=== PATIENT | female | born 2000 | race Caucasian/White ===

== ENCOUNTER → 2020-10-28 | Outpatient (CLI) | payer OTHER ==
[~2020-10-28] MED LIST: BIOT1TAB2 PO
[2020-10-28 09:16] LABS: BASOPHILS % (AUTO) 1 % (0-1); EOSINOPHILS % (AUTO) 1 % (1-7); LYMPHOCYTES % (AUTO) 25 % (22-44); MEAN CORPUSCULAR HGB CONC 33.7 g/dL (32.4-35.8); MONOCYTES % (AUTO) 5 % (2-9); NEUTROPHILS % (AUTO) 68 % (42-75); PLATELET COUNT 305 x10^3/uL (130-400); RED BLOOD COUNT 4.66 x10^6/uL (3.82-5.3); RED CELL DISTRIBUTION WIDTH 13.9 % (9.6-15.2)
[2020-10-28 09:20] LABS: MICROSCOPIC INDICATED
[2020-10-28 09:24] LABS: ALANINE AMINOTRANSFERASE 13 U/L (12-78); ANION GAP 6 mmol/L (5-15); CALCIUM 9.5 mg/dL (8.5-10.1); CHLORIDE 109 mmol/L (98-107); CREATININE 0.73 mg/dL (0.55-1.02)
[2020-10-28 09:29] LABS: ALKALINE PHOSPHATASE 57 U/L (45-117); BILIRUBIN,TOTAL 0.7 mg/dL (0.2-1.0); TOTAL PROTEIN 7.6 g/dL (6.4-8.2)
== END | disposition home or self-care (01) ==
LOC: STAR 08:09
PROVIDERS: ATTEND Obstetrics & Gynecology
DX: Z01.818 Encounter for other preprocedural examination (principal); R10.2 Pelvic and perineal pain; D36.9 Benign neoplasm, unspecified site
CPT/HCPCS: 36415; 80053; 81001; 84702; 85025; 87086

== ENCOUNTER 2020-11-08 10:04 | Day surgery (SDC) | payer OTHER ==
[~2020-11-08] VITALS: Ht 170.2 cm; Wt 65.1 kg
[2020-11-08 10:52] VITALS: BP 122/79
[2020-11-08] MEDS ORDERED: CHLORHEXIDINE 15 ML UDC PO ONE (11:30)
[2020-11-08] MEDS ORDERED: LACTATED RINGERS 1,000 ML IV SCH (11:30)
[2020-11-08 11:55] LABS: INTERNATIONAL NORMALIZED RATIO 1.03 (0.93-1.1)
[2020-11-08] MEDS ORDERED: CEFOTETAN PMX 2GM/50ML 50 ML IVPB ONE (12:00)
[2020-11-08 12:47] LABS: HCG UR SG 1.023 (1.003-1.030)
[2020-11-08] MEDS ORDERED: BUPIVACAINE/PF-EPI 0.25% 1:200K ONE (12:59)
[2020-11-08] MEDS ORDERED: BUPIVACAINE/PF 0.25% ONE (13:01)
[2020-11-08] MEDS ORDERED: EPINEPHRINE 1 MG/ML, 1ML ONE (13:01)
[2020-11-08] MEDS ORDERED: FENTANYL PF 250 MCG/5ML ONE (14:18)
[2020-11-08] MEDS ORDERED: MIDAZOLAM 1 MG/ML, 2ML ONE (14:18)
[2020-11-08] MEDS ORDERED: PROPOFOL 10 MG/ML, 20ML ONE (14:19)
[2020-11-08] MEDS ORDERED: ROCURONIUM 10MG/ML,5ML ONE (14:19)
[2020-11-08] MEDS ORDERED: ONDANSETRON 2MG/ML, 2ML ONE ×2 (15:04→17:33)
[2020-11-08] MEDS ORDERED: DEXAMETHASONE 4 MG/ML, 1ML ONE ×2 (15:04)
[2020-11-08] MEDS ORDERED: KETOROLAC 30 MG/1 ML ONE (15:04)
[2020-11-08] MEDS ORDERED: OXYcodone 5 MG/5 ML ORAL.SOL UDC PO PRN (15:30)
[2020-11-08] MEDS ORDERED: LABETALOL 5MG/ML, 20ML IV PRN (15:30)
[2020-11-08] MEDS ORDERED: PROMETHAZINE 25 MG/ML, 1ML IVPush PRN (15:30)
[2020-11-08] MEDS ORDERED: MEPERIDINE/PF 25MG/0.5ML IVPush PRN (15:30)
[2020-11-08] MEDS ORDERED: ACETAMINOPHEN 325 MG TABLET PO PRN (15:30)
[2020-11-08] MEDS ORDERED: HYDROmorphone 1 MG/ML, 1ML INJ IVPush PRN (15:30)
[2020-11-08] MEDS ORDERED: hydrALAzine 20 MG/ML, 1ML IV PRN (15:30)
[2020-11-08] MEDS ORDERED: ONDANSETRON 2MG/ML, 2ML IVPush PRN (15:30)
[2020-11-08] MEDS ORDERED: INTERCEED 3 X 4 INCH DRESSING ONE ×2 (16:39→16:42)
[2020-11-08] MEDS ORDERED: FENTANYL PF 100 MCG/2ML ONE (17:32)
[2020-11-08] MEDS: FENTANYL PF 100 MCG/2ML IV PRN ×3 (17:36→17:49)
== END 2020-11-08 19:40 | disposition home or self-care (01) ==
LOC: OUT 10:04
PROVIDERS: ATTEND Specialist
DX: D27.0 Benign neoplasm of right ovary (principal); D39.11 Neoplasm of uncertain behavior of right ovary; Z79.01 Long term (current) use of anticoagulants; Z79.899 Other long term (current) drug therapy; Z83.42 Family history of familial hypercholesterolemia
CPT/HCPCS: 36415; 81025; 82105; 83615; 85610; 85730; 86850; 86900; 88304; J0171; J1100; J1885; J2250; J2405; J2704; J3010; C1765; J7120